=== PATIENT | male | born 1955 | race Caucasian/White ===

== ENCOUNTER → 2018-04-26 | Outpatient (CLI) | payer OTHER | END | disposition home or self-care (01) | LOC: CFH 15:56 | PROVIDERS: ATTEND Physician Assistant Surgical | DX: M75.101 Unspecified rotator cuff tear or rupture of right shoulder, not specified as traumatic (principal); M25.411 Effusion, right shoulder ==

== ENCOUNTER 2018-05-22 05:37 | Day surgery (SDC) | payer OTHER ==
[2018-05-21 08:57] LABS: ALANINE AMINOTRANSFERASE 22 U/L (12-78); ALBUMIN 3.7 g/dL (3.4-5.0); ANION GAP 4 mmol/L (5-15); CHLORIDE 110 mmol/L (98-107); CREATININE 1.31 mg/dL (0.7-1.3)
[2018-05-21 08:59] LABS: ALKALINE PHOSPHATASE 84 U/L (45-117); BILIRUBIN,TOTAL 0.6 mg/dL (0.2-1.0); TOTAL PROTEIN 6.8 g/dL (6.4-8.2)
[~2018-05-22] VITALS: Ht 172.7 cm; Wt 97.6 kg
[~2018-05-22 05:37] MED LIST: LOSA50TA14 PO; OMEP20TA62 PO
[2018-05-22] MEDS ORDERED: LACTATED RINGERS 1,000 ML IV SCH (05:59)
[2018-05-22] MEDS ORDERED: ROPIvacaine/PF 0.2%, 20 ML ONE (06:05)
[2018-05-22] MEDS ORDERED: FENTANYL PF 250 MCG/5ML ONE (06:08)
[2018-05-22] MEDS ORDERED: MIDAZOLAM 1 MG/ML, 2ML ONE (06:08)
[2018-05-22 06:27] VITALS: BP 148/89
[2018-05-22] MEDS ORDERED: PROMETHAZINE 25 MG/ML, 1ML IM PRN ×2 (06:30)
[2018-05-22] MEDS ORDERED: ONDANSETRON ODT 8 MG PO PRN (06:30)
[2018-05-22] MEDS ORDERED: MEPERIDINE/PF 25MG/0.5ML IVPush PRN (06:30)
[2018-05-22] MEDS ORDERED: PROMETHAZINE 25 MG/ML, 1ML IV PRN (06:30)
[2018-05-22] MEDS ORDERED: MORPHINE SULFATE 4 MG/ML, 1ML IVPush PRN (06:30)
[2018-05-22] MEDS ORDERED: LABETALOL 20 MG/4 ML IV PRN (06:30)
[2018-05-22] MEDS ORDERED: ONDANSETRON 2MG/ML, 2ML IV PRN (06:30)
[2018-05-22] MEDS ORDERED: FENTANYL PF 100 MCG/2ML IV PRN (06:30)
[2018-05-22] MEDS ORDERED: hydrALAzine 20 MG/ML, 1ML IV PRN (06:30)
[2018-05-22] MEDS ORDERED: ACETAMINOPHEN 325 MG TABLET PO PRN (06:30)
[2018-05-22] MEDS ORDERED: PROMETHAZINE 12.5 MG SUPP PR PRN (06:30)
[2018-05-22] MEDS ORDERED: OXYcodone 5 MG/5 ML ORAL.SOL UDC PO PRN (06:30)
[2018-05-22] MEDS ORDERED: PROMETHAZINE 25 MG SUPP PR PRN (06:30)
[2018-05-22] MEDS ORDERED: HYDROmorphone 2 MG/ML, 1ML IVPush PRN (06:30)
[2018-05-22] MEDS ORDERED: EPINEPHRINE 1 MG/ML, 1ML ONE (06:36)
[2018-05-22] MEDS ORDERED: BUPIVACAINE/PF 0.25% ONE (06:36)
[2018-05-22] MEDS ORDERED: GLYCOPYRROLATE 0.2MG/1ML, 5ML ONE (07:02)
[2018-05-22] MEDS ORDERED: NEOSTIGMINE 1 MG/ML, 10ML ONE (07:02)
[2018-05-22] MEDS ORDERED: PHENYLEPHRINE 10 MG/ML ONE (07:02)
[2018-05-22] MEDS ORDERED: CEFAZOLIN 1,000 MG ONE (07:02)
[2018-05-22] MEDS ORDERED: ROCURONIUM 10 MG/ML,10ML ONE (07:02)
[2018-05-22] MEDS ORDERED: PROPOFOL 10 MG/ML, 20ML ONE (07:02)
[2018-05-22] MEDS ORDERED: OXYcodone 5 MG/5 ML ORAL.SOL UDC ONE (08:28)
[2018-05-22] MEDS ORDERED: ACETAMINOPHEN 650 MG/20.3 ML UDC ONE (08:28)
== END 2018-05-22 10:50 | disposition home or self-care (01) ==
LOC: OUT 05:37
PROVIDERS: ATTEND Orthopaedic Surgery
DX: S43.431A Superior glenoid labrum lesion of right shoulder, initial encounter (principal); S46.111A Strain of muscle, fascia and tendon of long head of biceps, right arm, initial encounter; M75.111 Incomplete rotator cuff tear or rupture of right shoulder, not specified as traumatic; M75.41 Impingement syndrome of right shoulder; M75.51 Bursitis of right shoulder; I10 Essential (primary) hypertension; X58.XXXA Exposure to other specified factors, initial encounter; Y93.89 Activity, other specified; Y92.89 Other specified places as the place of occurrence of the external cause; Y99.8 Other external cause status; Z72.89 Other problems related to lifestyle
CPT/HCPCS: 29823; 29826; 29827; 29828; 36415; 64415; 80053; 93005; C1713; J0171; J0690; J2250; J2370; J2704; J2710; J2795; J3010; J3490; J7120